=== PATIENT | male | born 1940 | race Caucasian/White ===

== ENCOUNTER → 2017-03-30 | Outpatient (CLI) | payer MEDICARE, BC ==
--- NOTE | 2017-03-30 21:07 | CT ---
EXAMINATION TYPE: CT chest wo con DATE OF EXAM: 03/30/2017 COMPARISON: NONE HISTORY: Solitary pulmonary nodule. CT DLP: 338.70 mGycm. Automated Exposure Control for Dose Reduction was Utilized. TECHNIQUE: CT scan of the thorax is performed without IV contrast. FINDINGS: LUNGS: Elevated right hemidiaphragm is demonstrated. There is right basilar linear scarring and/or at electasis near diaphragm. There is linear scarring in the left lower lobe near diaphragm and more patchy scarring and/or atelec tasis in the lingula near axial image 34. No suspicious nodule or mass is present bilaterally. No pleural effusion or pneumothorax is seen. The re is mild peribronchial wall thickening in the lower lungs. MEDIASTINUM: Lack of IV contrast is noted to limit evaluation for mediastinal and especially hilar ad enopathy. There are no definitive greater than 1 cm hilar or mediastinal lymph nodes. No cardiomega ly is seen. There is small to tiny pericardial effusion. There is coronary artery calcification which is noted marker for coronary artery disease. Ascending aorta measures up to 3.9 cm in diameter on ax ial image 24. Adjacent Main pulmonary artery measures 2.6 cm in diameter. OTHER: Tiny degree of bilateral gynecomastia is seen. There is fairly moderate multilevel spurring in the lower thoracic spine. IMPRESSION: No suspicious pulmonary nodule or mass is present. Ascending aorta is noted borderline an eurysmal at 3.9 cm.
== END ==
LOC: RADCTMAIN 17:16
PROVIDERS: ATTEND Internal Medicine Sleep Medicine
DX: I71.2 Thoracic aortic aneurysm, without rupture (principal)
CPT/HCPCS: 71250

== ENCOUNTER 2024-05-05 14:03 | Observation (INO) | payer MEDICARE, BC ==
--- NOTE | 2024-05-05 14:31 | ED ---
General Adult HPI - General Chief complaint: Altered Mental Status Stated complaint: AMS Time Seen by Provider: 05/05/24 14:10 Source: patient, RN notes reviewed, old records reviewed Mode of arrival: ambulatory Limitations: no limitations - History of Present Illness Initial comments: This is an 83-year-old male whose brings him into the emergency department because the patient is becoming weaker and much more fatigued over the last month and also is hallucinating and is started off slow but is getting progressively worse. Patient woke up at 3:00 in the morning stating that his body was in the bed with him and there was nobody in the bed. Patient is also seeing people outside that are not there and is seeing bugs and rabbits and things in the house that are not there. Patient himself has no complaints whatsoever. Okay states that this has been slowly getting worse over the last month. Patient does not want to do anything he does not eat well does not sleep well and cannot even focus on the TV and the only thing he seems to care about is the dog's. Patient also is not taking care of himself as far as bathing - Related Data Allergies Allergy/AdvReac Type Severity Reaction Status Date / Time No Known Allergies Allergy Verified 05/05/24 14:10 Review of Systems ROS Statement: Those systems with pertinent positive or pertinent negative responses have been documented in the HPI. ROS Other: All systems not noted in ROS Statement are negative. Past Medical History Past Medical History: Hypertension Additional Past Medical History / Comment(s): Nose CA, Lung Mass History of Any Multi-Drug Resistant Organisms: None Reported Past Psychological History: Anxiety Smoking Status: Never smoker Past Alcohol Use History: None Reported Past Drug Use History: None Reported General Exam - General Exam Comments Initial Comments: GENERAL: Patient is well-developed and well-nourished. Patient is nontoxic and well- hydrated and is in no acute distress. ENT: Neck is soft and supple. No significant lymphadenopathy is noted. Oropharynx is clear. Moist mucous membranes. Neck has full range of motion without eliciting any pain. EYES: The sclera were anicteric and conjunctiva were pink and moist. Extraocular movements were intact and pupils were equal round and reactive to light. Eyelids were unremarkable. PULMONARY: Unlabored respirations. Good breath sounds bilaterally. No audible rales rhonchi or wheezing was noted. CARDIOVASCULAR: There is a regular rate and rhythm without any murmurs gallops or rubs. ABDOMEN: Soft and nontender with normal bowel sounds. SKIN: Skin is clear with no lesions or rashes and otherwise unremarkable. NEUROLOGIC: Patient is alert and oriented x3. Cranial nerves II through XII are grossly i ntact. Motor and sensory are also intact. Normal speech, volume and content. Symmetrical smile. MUSCULOSKELETAL: Normal extremities with adequate strength and full range of motion. No lower extremity swelling or edema. No calf tenderness. LYMPHATICS: No significant lymphadenopathy is noted PSYCHIATRIC: Normal psychiatric evaluation. Limitations: no limitations Course Vital Signs 05/05/24 05/05/24 14:04 16:51 Temperature 97.5 F L Pulse Rate 76 61 Respiratory 20 18 Rate Blood Pressure 126/83 139/70 O2 Sat by Pulse 96 97 Oximetry Medical Decision Making - Medical Decision Making EKG is interpreted by myself but EKG shows a sinus rhythm at 62 bpm NM was 205 QRS is 152 QT interval 428 QTc is 432. Patient's EKG shows right bundle branch block. Was pt. sent in by a medical professional or institution (, PA, MATERIALS DEVELOPMENT ENGINEER, urgent care, hospital, or residential...) When possible be specific @ -No Did you speak to anyone other than the patient for history (EMS, parent, family, police, friend...)? What history was obtained from this source @ -No Did you review nursing and triage notes (agree or disagree)? Why? @ -I reviewed and agree with nursing and triage notes Were old charts reviewed (outside hosp., previous admission, EMS record, old EKG, old radiological studies, urgent care reports/EKG's, residential records)? Report findings @ -No old charts were reviewed Differential Diagnosis? @ -Differential Altered Mental Status: Hypoglycemia, DKA, hypercapnia, ETOH, overdose, CO poisoning, trauma, myxedema coma, HTN encephalopathy, infection, encephalitis, psychosis, intercranial hemorrhage, hepatic encephalopathy, meningitis, CVA, this is not meant to be an all-inclusive list EKG interpreted by me (3pts min.). @ -As above X-rays interpreted by me (1pt min.). @ -X-ray shows an elevated diaphragm and a small pleural effusion on the right side. CT interpreted by me (1pt min.). @ -CT of the brain shows no acute abnormality U/S interpreted by me (1pt. min.). @ -None done What testing was considered but not performed or refused? (CT, X-rays, U/S, labs)? Why? @ -None What meds were considered but not given or refused? Why? @ -None Did you discuss the management of the patient with other professionals (professionals i.e. Dr., PA, MATERIALS DEVELOPMENT ENGINEER, lab, RT, psych nurse, social services coordinator, mix crusher operator, teacher, department of natural resources officer, spring encaser)? Give summary @ -Dr. Hammond agreed to admit the patient and work him up further for the hallucinations Was smoking cessation discussed for >3mins.? @ -No Was critical care preformed (if so, how long)? @ -No Were there social determinants of health that impacted care today? How? (Homelessness, low income, unemployed, alcoholism, drug addiction, transportation, low edu. Level, literacy, decrease access to med. care, long-term, rehab)? @ -No Was there de-escalation of care discussed even if they declined (Discuss DNR or withdrawal of care, Hospice)? DNR status @ -No What co-morbidities impacted this encounter? (DM, HTN, Smoking, COPD, CAD, Cancer, CVA, ARF, Chemo, Hep., AIDS, mental health diagnosis, sleep apnea, morbid obesity)? @ -None Was patient admitted / discharged? Hospital course, mention meds given and route, prescriptions, significant lab abnormalities, going to OR and other pertinent info. @ -Patient continued to be altered during the ED visit and he was willing to stay and Dr. Hammond will admit the patient Undiagnosed new problem with uncertain prognosis? @ -No Drug Therapy requiring intensive monitoring for toxicity (Heparin, Nitro, Insulin, Cardizem)? @ -No Were any procedures done? @ -No Diagnosis/symptom? @ -Altered mental status Acute, or Chronic, or Acute on Chronic? @ -Acute Uncomplicated (without systemic symptoms) or Complicated (systemic symptoms)? @ -Complicated Side effects of treatment? @ -No Exacerbation, Progression, or Severe Exacerbation? @ -No Poses a threat to life or bodily function? How? (Chest pain, [place], [place], pneumonia, PE, COPD, DKA, ARF, appy, cholecystitis, CVA, Diverticulitis, Homicidal, Suicidal, threat to staff... and all critical care pts) @ -No - Lab Data Result diagrams: 05/05/24 14:40 05/05/24 14:40 Lab Results 05/05/24 05/05/24 05/05/24 Range/Units 14:40 14:40 14:40 WBC 7.2 (3.8-10.6) k/uL RBC 5.58 (4.30-5.90) m/uL Hgb 17.0 (13.0-17.5) gm/dL Hct 52.0 (39.0-53.0) % MCV 93.3 (80.0-100.0) fL MCH 30.4 (25.0-35.0) pg MCHC 32.6 (31.0-37.0) g/dL RDW 14.0 (11.5-15.5) % Plt Count 310 (150-450) k/uL MPV 7.8 Neutrophils % 54 % Lymphocytes % 33 % Monocytes % 5 % Eosinophils % 5 % Basophils % 1 % Neutrophils # 3.9 (1.3-7.7) k/uL Lymphocytes # 2.4 (1.0-4.8) k/uL Monocytes # 0.4 (0-1.0) k/uL Eosinophils # 0.4 (0-0.7) k/uL Basophils # 0.1 (0-0.2) k/uL PT 11.4 (10.0-12.5) sec INR 1.0 (<1.2) APTT 25.5 (22.0-30.0) sec Sodium 138 (137-145) mmol/L Potassium 4.3 (3.5-5.1) mmol/L Chloride 104 (98-107) mmol/L Carbon Dioxide 26 (22-30) mmol/L Anion Gap 8 mmol/L BUN 24 H (9-20) mg/dL Creatinine 0.77 (0.66-1.25) mg/dL Est GFR (CKD-EPI)AfAm >90 (>60 ml/min/1.73 sqM) Est GFR (CKD-EPI)NonAf 84 (>60 ml/min/1.73 sqM) Glucose 92 (74-99) mg/dL Calcium 9.8 (8.4-10.2) mg/dL Total Bilirubin 1.9 H (0.2-1.3) mg/dL AST 31 (17-59) U/L ALT 29 (4-49) U/L Alkaline Phosphatase 55 (38-126) U/L Ammonia (<30) umol/L Troponin I (0.000-0.034) ng/mL Total Protein 6.8 (6.3-8.2) g/dL Albumin 4.0 (3.5-5.0) g/dL Urine Color Urine Appearance (Clear) Urine pH (5.0-8.0) Ur Specific [place] (1.001-1.035) Urine Protein (Negative) Urine Glucose (UA) (Negative) Urine Ketones (Negative) Urine Blood (Negative) Urine Nitrite (Negative) Urine Bilirubin (Negative) Urine Urobilinogen (<2.0) mg/dL Ur Leukocyte Esterase (Negative) Urine RBC (0-5) /hpf Urine WBC (0-5) /hpf Ur Squamous Epith Cells (0-4) /hpf Urine Mucus (None) /hpf Urine Opiates Screen (NotDetected) Ur Oxycodone Screen (NotDetected) Urine Methadone Screen (NotDetected) Ur Barbiturates Screen (NotDetected) U Tricyclic Antidepress (NotDetected) Ur Phencyclidine Scrn (NotDetected) Ur Amphetamines Screen (NotDetected) U Methamphetamines Scrn (NotDetected) U Benzodiazepines Scrn (NotDetected) Urine Cocaine Screen (NotDetected) U Marijuana (THC) Screen (NotDetected) Serum Alcohol <10 mg/dL 05/05/24 05/05/24 05/05/24 Range/Units 14:40 14:40 16:23 WBC (3.8-10.6) k/uL RBC (4.30-5.90) m/uL Hgb (13.0-17.5) gm/dL Hct (39.0-53.0) % MCV (80.0-100.0) fL MCH (25.0-35.0) pg MCHC (31.0-37.0) g/dL RDW (11.5-15.5) % Plt Count (150-450) k/uL MPV Neutrophils % % Lymphocytes % % Monocytes % % Eosinophils % % Basophils % % Neutrophils # (1.3-7.7) k/uL Lymphocytes # (1.0-4.8) k/uL Monocytes # (0-1.0) k/uL Eosinophils # (0-0.7) k/uL Basophils # (0-0.2) k/uL PT (10.0-12.5) sec INR (<1.2) APTT (22.0-30.0) sec Sodium (137-145) mmol/L Potassium (3.5-5.1) mmol/L Chloride (98-107) mmol/L Carbon Dioxide (22-30) mmol/L Anion Gap mmol/L BUN (9-20) mg/dL Creatinine (0.66-1.25) mg/dL Est GFR (CKD-EPI)AfAm (>60 ml/min/1.73 sqM) Est GFR (CKD-EPI)NonAf (>60 ml/min/1.73 sqM) Glucose (74-99) mg/dL Calcium (8.4-10.2) mg/dL Total Bilirubin (0.2-1.3) mg/dL AST (17-59) U/L ALT (4-49) U/L Alkaline Phosphatase (38-126) U/L Ammonia <9 (<30) umol/L Troponin I <0.012 (0.000-0.034) ng/mL Total Protein (6.3-8.2) g/dL Albumin (3.5-5.0) g/dL Urine Color Urine Appearance (Clear) Urine pH (5.0-8.0) Ur Specific [place] (1.001-1.035) Urine Protein (Negative) Urine Glucose (UA) (Negative) Urine Ketones (Negative) Urine Blood (Negative) Urine Nitrite (Negative) Urine Bilirubin (Negative) Urine Urobilinogen (<2.0) mg/dL Ur Leukocyte Esterase (Negative) Urine RBC (0-5) /hpf Urine WBC (0-5) /hpf Ur Squamous Epith Cells (0-4) /hpf Urine Mucus (None) /hpf Urine Opiates Screen Not Detected (NotDetected) Ur Oxycodone Screen Not Detected (NotDetected) Urine Methadone Screen Not Detected (NotDetected) Ur Barbiturates Screen Not Detected (NotDetected) U Tricyclic Antidepress Not Detected (NotDetected) Ur Phencyclidine Scrn Not Detected (NotDetected) Ur Amphetamines Screen Not Detected (NotDetected) U Methamphetamines Scrn Not Detected (NotDetected) U Benzodiazepines Scrn Not Detected (NotDetected) Urine Cocaine Screen Not Detected (NotDetected) U Marijuana (THC) Screen Not Detected (NotDetected) Serum Alcohol mg/dL 05/05/24 Range/Units 16:23 WBC (3.8-10.6) k/uL RBC (4.30-5.90) m/uL Hgb (13.0-17.5) gm/dL Hct (39.0-53.0) % MCV (80.0-100.0) fL MCH (25.0-35.0) pg MCHC (31.0-37.0) g/dL RDW (11.5-15.5) % Plt Count (150-450) k/uL MPV Neutrophils % % Lymphocytes % % Monocytes % % Eosinophils % % Basophils % % Neutrophils # (1.3-7.7) k/uL Lymphocytes # (1.0-4.8) k/uL Monocytes # (0-1.0) k/uL Eosinophils # (0-0.7) k/uL Basophils # (0-0.2) k/uL PT (10.0-12.5) sec INR (<1.2) APTT (22.0-30.0) sec Sodium (137-145) mmol/L Potassium (3.5-5.1) mmol/L Chloride (98-107) mmol/L Carbon Dioxide (22-30) mmol/L Anion Gap mmol/L BUN (9-20) mg/dL Creatinine (0.66-1.25) mg/dL Est GFR (CKD-EPI)AfAm (>60 ml/min/1.73 sqM) Est GFR (CKD-EPI)NonAf (>60 ml/min/1.73 sqM) Glucose (74-99) mg/dL Calcium (8.4-10.2) mg/dL Total Bilirubin (0.2-1.3) mg/dL AST (17-59) U/L ALT (4-49) U/L Alkaline Phosphatase (38-126) U/L Ammonia (<30) umol/L Troponin I (0.000-0.034) ng/mL Total Protein (6.3-8.2) g/dL Albumin (3.5-5.0) g/dL Urine Color Yellow Urine Appearance Cloudy (Clear) Urine pH 5.0 (5.0-8.0) Ur Specific [place] 1.028 (1.001-1.035) Urine Protein Trace H (Negative) Urine Glucose (UA) Negative (Negative) Urine Ketones 1+ H (Negative) Urine Blood Trace H (Negative) Urine Nitrite Negative (Negative) Urine Bilirubin Negative (Negative) Urine Urobilinogen 2.0 (<2.0) mg/dL Ur Leukocyte Esterase Negative (Negative) Urine RBC 1 (0-5) /hpf Urine WBC 3 (0-5) /hpf Ur Squamous Epith Cells <1 (0-4) /hpf Urine Mucus Many H (None) /hpf Urine Opiates Screen (NotDetected) Ur Oxycodone Screen (NotDetected) Urine Methadone Screen (NotDetected) Ur Barbiturates Screen (NotDetected) U Tricyclic Antidepress (NotDetected) Ur Phencyclidine Scrn (NotDetected) Ur Amphetamines Screen (NotDetected) U Methamphetamines Scrn (NotDetected) U Benzodiazepines Scrn (NotDetected) Urine Cocaine Screen (NotDetected) U Marijuana (THC) Screen (NotDetected) Serum Alcohol mg/dL Disposition Clinical Impression: Altered mental status Disposition: ADMITTED IP TO THIS HOSP Referrals: Marino Hammond MD [Primary Care Provider] - 1-2 days Time of Disposition: 18:08
[2024-05-05] MEDS: SODIUM CHLORIDE 0.9% 1,000 ML IV ONE ×2 (14:51→18:53)
[2024-05-05 14:52] LABS: Basophils # (A) 0.1 k/uL (0-0.2); Basophils % (A) 1 %; Eosinophils # (A) 0.4 k/uL (0-0.7); Eosinophils % (A) 5 %; Lymphocytes # (A) 2.4 k/uL (1.0-4.8); Lymphocytes % (A) 33 %; MCH 30.4 pg (25.0-35.0); MCHC 32.6 g/dL (31.0-37.0); MCV 93.3 fL (80.0-100.0); Mean Platelet Volume 7.8; Monocytes # (A) 0.4 k/uL (0-1.0); Monocytes % (A) 5 %; Neutrophils # (A) 3.9 k/uL (1.3-7.7); Neutrophils % (A) 54 %; Platelet Count 310 k/uL (150-450); RBC 5.58 m/uL (4.30-5.90); WBC 7.2 k/uL (3.8-10.6)
[2024-05-05 15:06] LABS: Partial Thromboplastin Time 25.5 sec (22.0-30.0); Prothrombin Time 11.4 sec (10.0-12.5)
[2024-05-05 15:09] LABS: ALT 29 U/L (4-49); AST 31 U/L (17-59); African American GFR (CKD) >90 (>60 ml/min/1.73 sqM); Alcohol <10 mg/dL; Alkaline Phosphatase 55 U/L (38-126); Anion Gap 8 mmol/L; Blood Urea Nitrogen 24 mg/dL (9-20); Calcium 9.8 mg/dL (8.4-10.2); Carbon Dioxide 26 mmol/L (22-30); Chloride 104 mmol/L (98-107); Glucose 92 mg/dL (74-99); Non-African American GFR(CKD) 84 (>60 ml/min/1.73 sqM); Potassium 4.3 mmol/L (3.5-5.1); Sodium 138 mmol/L (137-145); Total Bilirubin 1.9 mg/dL (0.2-1.3); Total Protein 6.8 g/dL (6.3-8.2)
--- NOTE | 2024-05-05 15:23 | XR ---
EXAMINATION TYPE: XR chest 2V DATE OF EXAM: 05/05/2024 COMPARISON: NONE CLINICAL INDICATION: Male, 83 years old with history of altered mental status; , TECHNIQUE: XR chest 2V views of the chest. FINDINGS: Elevated right hemidiaphragm with subsegmental consolidation and air fluid levels. Left lung clear. H eart size normal. No pneumothorax. Diffuse osteopenia. IMPRESSION: 1. Elevated right hemidiaphragm with air-fluid levels. Difficult to determine if this is related to t he diaphragm or subdiaphragmatic. Consider follow-up CT scan. [facility], , 05/05/2024 3:20 PM
[2024-05-05] MEDS: ALBUTEROL HFA INHALER INHALATION STA (15:27)
--- NOTE | 2024-05-05 15:47 | CT ---
EXAMINATION TYPE: CT brain wo con CT DLP: 1113..4 mGycm, Automated exposure control for dose reduction was used. DATE OF EXAM: 05/05/2024 3:23 PM COMPARISON: None. CLINICAL INDICATION:Male, 83 years old with history of Altered mental status, AMS TECHNIQUE: Brain: Multiple axial CT images of the brain were obtained without IV contrast. . Coronal and sagitta l reformats reviewed. FINDINGS: Brain: Extra-axial spaces: No abnormal extra-axial fluid collections. Ventricular system: Dilatation in proportion to cerebral atrophy. Cerebral parenchyma: Moderate cerebral atrophy. No acute intraparenchymal hemorrhage or mass effect. The lindsay-white junction is well differentiated. Scattered hypoattenuating areas are seen within the periventricular white matter. Cerebellum: Unremarkable. Mass effect: No evidence of midline shift. Intracranial vasculature: Atherosclerotic calcifications of the intracranial vessels. Soft tissues: Normal. Calvarium/osseous structures: No depressed skull fracture. Paranasal sinuses and mastoid air cells: Minimal scattered paranasal sinus disease. Visualized orbits: Right aphakia IMPRESSION: 1. No acute intracranial process. 2. Age-related atrophic changes with nonspecific white matter changes, likely secondary to chronic sm all vessel ischemic disease. [facility], , 05/05/2024 3:27 PM
--- NOTE | 2024-05-05 16:18 | CT ---
EXAMINATION TYPE: CT abdomen pelvis wo con DATE OF EXAM: 05/05/2024 4:03 PM COMPARISON: None. CLINICAL INDICATION: Male, 83 years old with history of Air under diaphragm on x-ray, Air under diaph ragm on x-ray TECHNIQUE: Axial images were obtained from above the diaphragm to the pubic rami in the axial plane a t 5 mm thick sections. Reconstructed images are reviewed on the computer in the coronal plane. CONTRAST: mL of . Study performed without Oral Contrast DLP: 634.2 mGycm, Automated exposure control for dose reduction was used. FINDINGS: Limited CT sections are obtained the lung bases. The lung bases are clear. Normal CT ABDOMEN: Liver: Normal Spleen: Normal Pancreas: Normal Adrenal glands: The adrenal glands are normal. Gallbladder: Normal Kidneys: No masses are evident. No hydronephrosis is present. There is a 0.5 cm nonobstructing jaime l stone medial upper pole right kidney. Small cyst along the inferior anterior left kidney measuring 1.1 cm. Aorta: Vascular calcification is within the aorta. Inferior vena cava: Normal. CT PELVIS: Loops of bowel within the abdomen and pelvis are normal. This study is without oral contrast limi ting bowel evaluation Appendix: Not identified. No dilated tubular structure or inflammatory changes evident. Urinary bladder: Normal. Genitourinary structures: Prostate is prominent and contains calcification Osseous structures: No suspicious lytic or sclerotic lesions. IMPRESSION: 1. Nonobstructing 0.5 cm upper pole right renal cyst [facility], , 05/05/2024 4:16 PM
[2024-05-05 16:39] LABS: Appearance,Urine Cloudy (Clear); Bilirubin,Urine Negative (Negative); Blood,Urine Trace (Negative); Color,Urine Yellow; Glucose,Urine (UA) Negative (Negative); Ketones,Urine 1+ (Negative); Leukocyte Esterase,Urine Negative (Negative); Mucus,Urine Many /hpf; Nitrite,Urine Negative (Negative); Protein,Urine Trace (Negative); RBC,Urine 1 /hpf (0-5); Specific Gravity,Urine 1.028 (1.001-1.035); Squamous Epithelial Cell,Urine <1 /hpf (0-4); WBC,Urine 3 /hpf (0-5)
[2024-05-05 16:48] LABS: Amphetamine Screen,Urine Not Detected (NotDetected); Barbiturate Screen,Urine Not Detected (NotDetected); Benzodiazepines Screen,Urine Not Detected (NotDetected); Cocaine Screen,Urine Not Detected (NotDetected); Methadone Screen, Urine Not Detected (NotDetected); Opiate Screen,Urine Not Detected (NotDetected); Oxycodone Screen, Urine Not Detected (NotDetected); Phencyclidine Screen,Urine Not Detected (NotDetected); Tricyclic Antidepressant,Urine Not Detected (NotDetected); Urn Cannabinoid Scrn Not Detected (NotDetected)
[2024-05-06 00:52] LABS: Glucose,Whole Blood 107 mg/dL (70-110)
[2024-05-06] MEDS: THIAMINE 100 MG TAB PO SCH (08:07)
[2024-05-06] MEDS ORDERED: ALBUTEROL HFA INHALER INHALATION PRN (13:36)
[2024-05-06] MEDS ORDERED: RX INFO: IV CONTRAST WAS GIVEN 1 EACH MISC MISCELLANE PRN (13:40)
[2024-05-06 16:05] VITALS: BMI 25.1
--- NOTE | 2024-05-06 16:53 | CA ---
Transthoracic Echo Report Name: Tom Reyes Age: 83 Gender: M : 1940 Exam Date: 05/06/2024 13:54 Exam Location: [facility] Ht (in): 70 Wt (lb): 175 Ordering Physician: Marino Hammond MD Attending/Referring Phys: Stephany SCHULTE Advertising Photographer Aminta Morris, CHAU Procedure CPT: Indications: chf? Cardiac Hx: Technical Quality: Good Contrast 1: Total Dose (mL): Contrast 2: Total Dose (mL): MEASUREMENTS (Male / Female) Normal Values 2D ECHO LV Diastolic Diameter PLAX 4.4 cm 4.2 - 5.9 / 3.9 - 5.3 cm LV Systolic Diameter PLAX 2.0 cm IVS Diastolic Thickness 1.0 cm 0.6 - 1.0 / 0.6 - 0.9 cm LVPW Diastolic Thickness 1.1 cm 0.6 - 1.0 / 0.6 - 0.9 cm LV Relative Wall Thickness 0.5 RV Internal Dim ED PLAX 2.7 cm LA Systolic Diameter LX 3.9 cm 3.0 - 4.0 / 2.7 - 3.8 cm LV Diastolic Volume MOD BP 51.9 cm??? 67 - 155 / 56 - 104 cm??? LV Systolic Volume MOD BP 15.1 cm??? 22 - 58 / 19 - 49 cm??? LV Ejection Fraction MOD BP 70.9 % >= 55 % LV Cardiac Index MOD BP 1349.2 cm???/min???m??? LV Diastolic Volume MOD 4C 44.0 cm??? LV Systolic Volume MOD 4C 11.3 cm??? LV Ejection Fraction MOD 4C 74.4 % LV Cardiac Index MOD 4C 1201.0 cm???/min???m??? LV Diastolic Length 4C 7.5 cm LV Systolic Length 4C 6.1 cm LV Diastolic Volume MOD 2C 53.6 cm??? LV Systolic Volume MOD 2C 20.2 cm??? LV Ejection Fraction MOD 2C 62.4 % LV Cardiac Index MOD 2C 1228.5 cm???/min???m??? LV Diastolic Length 2C 6.5 cm LV Systolic Length 2C 5.9 cm LA Volume 25.6 cm??? 18 - 58 / 22 - 52 cm??? LA Volume Index 12.8 cm???/m??? 16 - 28 cm???/m??? M-MODE Aortic Root Diameter MM 3.3 cm LA Systolic Diameter MM 4.9 cm LA Ao Ratio MM 1.5 AV Cusp Separation MM 1.9 cm DOPPLER AV Peak Velocity 172.8 cm/s AV Peak Gradient 11.9 mmHg AV Mean Velocity 121.2 cm/s AV Mean Gradient 6.7 mmHg AV Velocity Time Integral 36.4 cm LVOT Peak Velocity 172.8 cm/s LVOT Peak Gradient 11.9 mmHg LVOT Velocity Time Integral 33.2 cm MV Area PHT 2.7 cm??? Mitral E Point Velocity 77.8 cm/s Mitral A Point Velocity 81.0 cm/s Mitral E to A Ratio 1.0 MV Deceleration Time 281.3 ms TR Peak Velocity 235.0 cm/s TR Peak Gradient 22.1 mmHg FINDINGS Left Ventricle Left ventricular ejection fraction is estimated at 55-60%. Normal left ventricular wall motion. Left ventricular cavity size normal. Left ventricular wall thickness normal. Right Ventricle Normal right ventricular size and function. Right Atrium Normal right atrial size. Left Atrium Normal left atrial size. Mitral Valve Structurally normal mitral valve. Psai-vm-[id number] mitral regurgitation. No mitral stenosis. Aortic Valve Trileaflet aortic valve. No aortic valve stenosis or regurgitation. Diffuse thickening (sclerosis) of the aortic valve cusps without reduced excursion. Tricuspid Valve Structurally normal tricuspid valve. Mild tricuspid regurgitation. No tricuspid stenosis. Pulmonic Valve Structurally normal pulmonic valve. Trace pulmonic regurgitation. No pulmonic stenosis. Pericardium No pericardial or pleural effusion. Aorta Normal size aortic root and proximal ascending aorta. CONCLUSIONS Normal LV function Mild to moderate mitral regurgitation Previewed by: Dr. Heraclio Lovell MD (Electronically Signed) Final Date: 06 May 2024 16:52
--- NOTE | 2024-05-06 18:23 | CT ---
EXAMINATION TYPE: CT angio head neck DATE OF EXAM: 05/06/2024 6:04 PM COMPARISON: 05/05/2024 . CLINICAL INDICATION: Male, 83 years old with history of MS changes, hallucinations; PHH, ams, hx of M S TECHNIQUE: Axially acquired helical CT angiogram of the head and neck was obtained with contrast. Axi al images are supplemented with 3D reconstructions and MIP images which were post-processed at an in dependent workstation. NASCET criteria used. Contrast used:65 mL of Isovue 370 with IV Contrast, Oral contrast used: None. CT DLP: 313.7 mGycm, Automated exposure control for dose reduction was used. FINDINGS: CTA HEAD: No evidence of acute intracranial hemorrhage, mass effect, or midline shift. The ventricles, sulci, a nd cisterns are unremarkable. Vertebral arteries: The vertebral arteries are patent. Vertebral artery dominance: Right vertebral artery intracranial portion with termination is posterior inferior cerebellar arteries suggested. Basilar artery: The basilar artery is intact. The basilar artery bifurcation is normal. Internal Carotid arteries: The cervical, petrous, cavernous and supraclinoid segments are normal. RACHEL: Patent with no evidence of aneurysm. ACOM: Present without evidence of aneurysm. MCA: Patent with no evidence of aneurysm. SPORTS BOOK SERVER: Patent with no evidence of aneurysm. PCOM: Hypoplastic bilaterally. Dural sinuses: Patent. CTA NECK: Right Carotid System: The common carotid and external carotid arteries are patent. There is less than 25% stenosis at the c arotid bifurcation secondary to calcified/noncalcified plaque. The rest of the internal carotid arter y is patent. Left Carotid System: The common carotid and external carotid arteries are patent. There is less than 25% stenosis at the c arotid bifurcation secondary to calcified/noncalcified plaque. The rest of the internal carotid arter y is patent. Vertebral arteries are patent without evidence hemodynamically significant stenosis. There is a three-vessel aortic arch. The origins of the great vessels are patent. No evidence of hemo dynamically significant stenosis. IMPRESSION: 1. No evidence of dissection of the cervical internal carotid arteries or vertebral arteries. 2. No any evidence of significant stenosis at the carotid bifurcations. 3. No evidence of intracranial high-grade stenosis or intracranial aneurysm. [facility], , 05/06/2024 6:21 PM
--- NOTE | 2024-05-06 18:24 | CT ---
EXAMINATION TYPE: CT chest w con DATE OF EXAM: 05/06/2024 6:04 PM COMPARISON: None CLINICAL INDICATION: Male, 83 years old with history of R. effusion; PHH, pleural effusion TECHNIQUE: Multiple axial images were obtained through the chest. Sagittal and coronal reformats were created for review. MIP was performed on a separate workstation. Contrast used:100 mL of Isovue 370 with IV Contrast (None if empty) Oral contrast used: (None if empty) CT DLP: 416.2 mGycm, Automated exposure control for dose reduction was used. FINDINGS: LUNGS/ PLEURA: Elevated right diaphragm with associated atelectasis. No focal consolidation, pneumoth orax or pleural effusion. Streaky atelectasis along the right diaphragm. AIRWAY: Patent and unremarkable. HEART: Size within normal limits. MEDIASTINUM: No gross evidence of adenopathy. 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 VASCULATURE: No aortic aneurysm. MUSCULOSKELETAL: No acute osseous abnormalities SOFT TISSUES/LYMPH NODES: Unremarkable. LOWER NECK: No significant findings. UPPER ABDOMEN: No significant findings. IMPRESSION: Elevated right diaphragm with associated atelectasis no evidence for right pleural effusion. Follow up recommendations for incidental pulmonary nodules, if there are any, are per [employer]?s [employer] or [place] [employer]. [email or web address]://[email or web address].org/articles/[email or web address]?lang=us [facility] Silvana Apodaca, , 05/06/2024 6:22 PM
[2024-05-07] MEDS: DULoxetine HCL 60 MG CAPSULE.DR PO SCH (09:17)
[2024-05-07] MEDS: lisinopriL 20 MG TAB PO SCH (09:17)
[2024-05-07] MEDS: amLODIPine 5 MG TAB PO SCH (09:17)
[2024-05-07 12:52] VITALS: BP 169/86; PULSE 67; RESP 17; TEMP 97.7
--- NOTE | 2024-05-07 14:04 | P.PN ---
Progress Note - Text Progress Note Date: 05/07/24 I spoke with the primary attending (Dr. Hammond) and he stated he does not need neurology and he is going to discharge the patient home. Please notify neurology team if still needed.
[2024-05-07] MEDS ORDERED: QUEtiapine 25 MG TAB PO PRN (17:02)
--- NOTE | 2024-05-07 17:02 | P.CN ---
Psychiatric Consult - . Consult date: 05/07/24 Consult:: 05/07/24 16:38 IDENTIFYING DATA: This patient is a male who is 83 years old REASON FOR REFERRAL: Psychiatry was consulted for altered mental status HISTORY OF PRESENT ILLNESS: The patient presented to the hospital on 05/05/2024 22 progressively getting weaker, more fatigued, and experiencing hallucinations. Patient was seen bedside this afternoon with his Marily and friend Josselyn present. Patient is hard of hearing but is able to provide history along with family. He is A&Ox4 currently. He articulates that he has been having visual hallucinations at night that began a year ago and have been increasing in frequency particularly over the past few months. He states that the hallucinations feel real to him and descriptions are consistent with hypnagogic and hypnopompic visual hallucinations. He describes that he finds himself driving at times, seeing that certain people are about to do things, but then wakes up to find that none of his experiences are real. His states that thi s past week, he has been experiencing such visual hallucinations after waking up and has been seeing bugs, deer and rabbits and was not fully dressed while he was considering following them. His Marily is concerned about his experiences. Patient has not been experiencing hallucinations while hospitalized. Pat also describes that he has become more forgetful over the past few years and recently has forgotten to pay some bills, which is unlike him. While hospitalized, patient has been calm and cooperative without any agitation or paranoia. There is no history of agitation or aggression while at home. Patient also drinks 3-4 drinks of beer daily. Denies other substance use. He has been on Cymbalta 60 mg daily for anxiety but otherwise does not have any psychiatric history. Patient and family state that anxiety began around 5 years ago and has been relatively manageable with current medication regimen. Patient denies depression or symptoms consistent with milton. they report that he sleeps about 11 hours at night. He has been having more trouble with ADLs. At this time patient denies any suicidal or homicidal ideations, intent or plan. Patient denies any auditory hallucinations and denies any paranoia or delusions. CT brain without contrast from 05/05/2024 reveals age-related atrophy changes with nonspecific white matter changes likely secondary to chronic small vessel ischemic disease PAST PSYCHIATRIC HISTORY: Patient has a a history of anxiety for which he is on Cymbalta 60 mg daily. Patient denies being on any other psychiatric medications. Patient denies any previous psychiatric hospitalizations. Patient denies any psychiatric outpatient follow-up. Patient denies any history of suicide attempts in the past. PAST MEDICAL HISTORY: Past Medical History: Hypertension Additional Past Medical History / Comment(s): Nose CA, Lung Mass History of Any Multi-Drug Resistant Organisms: None Reported Past Psychological History: Anxiety Smoking Status: Never smoker Past Alcohol Use History: None Reported Past Drug Use History: None Reported ALLERGIES: as per EMR. CHEMICAL DEPENDENCY HISTORY: as per HPI. FAMILY PSYCHIATRIC/SUBSTANCE USE HISTORY: Denies SOCIAL HISTORY: Patient was born in [place]. he has been with his was from [place] and they have 2 children. His son resides in [place] and his daughter lives in [place]. Plan is for them to move with their daughter in [place] next week. Their daughter is a nurse and is aware of patient's situation and they are feeling very well socially supported. MENTAL STATUS EXAM: General Appearance: Patient appears to be stated age is alert, pleasant, friendly and cooperative. Patient appears to have good hygiene and grooming wearing hospital gown with goodeye contact. Behavior: Patient is calmly lying in bed without any agitated behavior. No tremors or muscular rigidity Speech: Patient's speech is fluent and nonpressured. Mood/Affect: Patient reports their mood is "good", affect is congruent, smiling, initiates humor Suicidality/Homicidality: Patient denies having any suicidal or homicidal ideation intent or plan. Perceptions: Patient denies any current visual hallucinations and denies any auditory hallucinations Though content/process: There is no evidence of any delusional thought content and thought process is linear and goal-directed. Memory and concentration: AOX3, grossly intact for the purposes of this session. 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 -Delirium precautions recommended with patient including - avoiding use of narcotics and MANAGER WORK sedatives, limit anticholinergic medications when possible, frequent re-orientation, minimize use of restraints, open window shades during the day and close them at night. Discussed this at length with family. -Would recommend the following medication changes/additions: Seroquel 12.5 mg qHS PRN for visual hallucinations. Discussed risks, benefits, and side effects with family and patient at length, including BBB of mortality. Patient to f/u with Neurologist and PCP outpatient to continue management -Discussed impact of substance use on mental and physical health, including cognition, dementia, delirium, and medication. Strongly recommend decreasing alcohol intake and/or alcohol cessation. -Communicated plan to patient's nurse -Psychiatry will sign off at this time -Please contact with any questions. -Patient and family expressed understanding and agreed to the above plan.
--- NOTE | 2024-05-08 07:53 | DS ---
DISCHARGE SUMMARY CHIEF COMPLAINT: Shortness of breath and hallucinations. HISTORY OF PRESENT ILLNESS AND PHYSICAL EXAMINATION: Details of this man's history and physical can be found in the initial workup. LABORATORY STUDIES: While he is in the hospital, he had laboratory studies, details of which can be found in the laboratory section of his chart. COURSE IN THE HOSPITAL: After admission, he was placed on bedrest, started on intravenous fluids. He had been having shortness of breath and some cognitive issues for some time. Studies had been ordered, but his daughter is moving he and his to [place] next week, so the studies were canceled. While he is in the hospital, these various tests will be run. He had what looked like a right pleural effusion, but this turned out to be an elevated right hemidiaphragm. He had an echocardiogram which was unremarkable and there was no sign of failure. CT of the chest failed to demonstrate any pathology. Vascular studies of the neck and brain were normal. He was to be seen by Neurology and Psychiatry, but his hallucinations cleared and after all the studies were performed, it was felt likely that his issue was dementia related to heavy alcohol consumption. He is stable and doing well, and his blood pressure was good. It was felt that he could be discharged on the , and he will follow up in the office in several days. FINAL DIAGNOSES: 1. Hallucinations. 2. Dementia. 3. Chronic alcoholism. 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 5. Shortness of breath. 6. Hypertension. OPERATIONS: None. CONSULTATIONS: None. He is improved. MMKIML / HILARIO: [id number] /
[2024-05-08] MEDS ORDERED: lisinopriL 20 MG TAB PO SCH (09:00)
[2024-05-08] MEDS ORDERED: CHLORTHALIDONE 25 MG TAB PO SCH (09:00)
--- NOTE | 2024-05-09 02:51 | HP ---
HISTORY AND PHYSICAL CHIEF COMPLAINT: Shortness of breath and hallucinations. HISTORY OF PRESENT ILLNESS: This is another admission for this 83-year-old white male. He has been having some trouble with memory of late. He does drink quite a bit of alcohol and has done so for many years. He has had no focal neurologic deficits, headaches, etc. He has also been short of breath. Workup in the office now revealed what was thought to be a right pleural effusion. He has had no chest pain. He has had no fever or chills. REVIEW OF SYSTEMS: He denies headaches, focal neurologic deficits, change in vision or the hearing, chest pain, cough, hemoptysis, abdominal pain, urinary complaints, etc. Past medical history, family history, and personal and social histories are all otherwise unremarkable or noncontributory. He does not smoke. He used to many years ago. He drinks probably at least 6 cans of beer a night. PHYSICAL EXAMINATION: VITAL SIGNS: Normal. HEAD, EARS, EYES, NOSE, MOUTH AND THROAT: Normal. Carotids are normal. CHEST: Clear. CARDIAC: Normal with no murmurs or extra sounds. ABDOMEN: Soft, nontender. EXTREMITIES: Normal. NEUROLOGICAL: He seems to be intact, and he is not currently experiencing any hallucinations at this time. He is admitted to the hospital with diagnoses of: 1. Hallucinations. 2. Recent mental status changes with memory lapses. 3. Shortness of breath. PLAN: 1. Bedrest. 2. IV fluids. 3. Frequent monitoring of his neurologic status and vital signs. 4. CTA of the head and brain. 5. CT of the chest. 6. Echocardiogram. 7. BNP and D-dimer. 8. Consult with Cardiology, Neurology, and Psychiatry. MMODL / IJN: [id number] /
--- NOTE | 2024-05-09 07:48 | PN ---
PROGRESS NOTE DATE OF SERVICE: 05/06/2024 CHIEF COMPLAINT: Shortness of breath and mental status changes. HISTORY OF PRESENT ILLNESS: This gentleman is fairly stable, but he is apparently not hallucinating anymore. His studies so far have been negative. PHYSICAL EXAMINATION: CHEST: Breath sounds are quite good. CARDIAC: Normal. ABDOMEN: Soft and nontender. NEUROLOGICAL: He seems to be intact. He seems to be awake, alert, and oriented. IMPRESSION: 1. Hallucinations, etiology unknown. 2. Shortness of breath. 3. Elevated right hemidiaphragm. 4. Chronic alcoholism. 5. 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 6. Dementia. PLAN: Continue workup. He is to be seen by Neurology, Cardiology, and Psychiatry. MMODL / IJN: [id number] /
== END 2024-05-07 17:32 | disposition home or self-care (01) ==
LOC: EC 14:03 → 5NMEDONC 18:12
PROVIDERS: ADMIT Family Medicine; ATTEND Family Medicine
DX: R44.3 Hallucinations, unspecified (principal); F03.94 Unspecified dementia, unspecified severity, with anxiety; F10.20 Alcohol dependence, uncomplicated; R06.02 Shortness of breath; I10 Essential (primary) hypertension; Z79.899 Other long term (current) drug therapy
CPT/HCPCS: 96361 ×3; 96360; 99285; 36415; 94640; 93005; 93306; 83880; 80053; 82140; 84484; 85025; 85610; 85730; 81001; 80306; 87636; 71046; 70496; 70450; 71260; 70498; 74176; G0378 ×3; G0480; Q9967; 80320